=== PATIENT | male | born 1950 | race Caucasian/White ===

== ENCOUNTER 2025-04-30 10:35 | Emergency (ER) | payer MEDICARE, SELFPAY ==
[2025-04-30 10:38] VITALS: BP 134/100
--- NOTE | 2025-04-30 11:42 | ED.GENMED ---
History of Present Illness
General
Chief Complaint: Post Operative Problem(s)
Source: patient
Exam Limitations: none
Time Seen by Provider: 04/30/25 11:41
Nursing documentation reviewed up to this point in time: agreed with
History of Present Illness
History of Present Illness:
75-year-old male with history of A-fib on Eliquis, also skin cancer, had skin cancer removed by Mohs surgery anterior left shoulder/upper chest area on 04/28. Had held his Xarelto for 3 days prior. He resumed it yesterday. He woke this a.m. with
bleeding from the site. He reports waking up this morning with blood on his dressing, although not severe enough to cause a pool of blood. The patient expressed concern that moving his arm and the way he was sleeping might have aggravated the
bleeding. [facility] in [place] but plans to return home to [place] today if bleeding does not worsen.
Past History
Past History
ED Past Medical History: Arrthythmia (Afib on Xarelto) and Cancer (skin cancer)
ED Past Surgical History: Other (Mohs surgery 04/28 left upper chest wall)
Review of Systems
Review of Systems
Allergies reviewed?: Yes
All Other Systems: ROS reviewed and negative except as documented in HPI and ROS
Phy Exam
Physical Exam
Physical Exam:
GENERAL: No acute distress. A&Ox3.
CONSTITUTIONAL: Afebrile.
RESPIRATORY: Regular respirations, nonlabored, lungs clear.
CARDIOVASCULAR: Regular rate and rhythm, no murmurs, no rubs.
MUSCULOSKELETAL: Moves with ease. Well perfused.
SKIN: Warm, dry, pink, trickle of blood oozing from left upper anterior shoulder incision site, sutures intact, the blood is oozing from the end of a wound from a 2 mm opening.
PSYCH: Normal mood and affect. Well kept, interactive and appropriate
NEUROLOGIC: Awake, alert and oriented. No focal neurological deficits
Course
Orders/Labs/Results
Orders:
Orders
04/30/25 10:45
Electrocardiogram (*1) Urgent
Reason for Study: Chest Pain
04/30/25 10:46
EKG- Treatment ONCE
Vital Signs
Initial and Last Documented VS:
Initial Vital Signs
Temp Pulse Resp BP Pulse Ox
97.9 F 120 20 134/100 99
04/30/25 10:38 04/30/25 10:38 04/30/25 10:38 04/30/25 10:38 04/30/25 10:38
Last Documented Vital Signs
Temp Pulse Resp BP Pulse Ox
97.9 F 120 20 134/100 99
04/30/25 10:38 04/30/25 10:38 04/30/25 10:38 04/30/25 10:38 04/30/25 11:44
MDM/Problems Addressed
MDM/Problems Addressed:
75-year-old male with history of A-fib on Eliquis, also skin cancer, had skin cancer removed by Mohs surgery anterior left shoulder/upper chest area on 04/28. Had held his Xarelto for 3 days prior. He resumed it yesterday. He woke this a.m. with
bleeding from the site. He reports waking up this morning with blood on his dressing, although not severe enough to cause a pool of blood. The patient expressed concern that moving his arm and the way he was sleeping might have aggravated the
bleeding. The patient is [facility] in [place] but plans to return home to [place] today if bleeding does not worsen.
Still bleeding after one suture 3-0 Prolene applied.
Second [3-0] Prolene suture applied in 'X' fashion and still bleeding but from between a different space between sutures
Third suture applied with good hemostasis
Wound cleansed with normal saline, antibiotic ointment and large Band-Aid applied.
Patient on Xarelto for A-fib, preventative only, okay to hold for the next 2 days.
*Pulse Oximetry
SaO2: 99
Oxygen Mode of Delivery: Room air
Patient hypoxic: not evaluated
*Critical Care Note
Total Time (30-74mins, 75-104mins- exclusive of procedures): Not Applicable
ED Attending Note
-
Portions of this chart may have been created with voice recognition software.� Occasional wrong word or��sound alike� substitutions may have occurred due to the inherent limitations of voice recognition software.
Discharge Plan
Departure
Patient Disposition: Home (Routine Discharge)
Date of Disposition: 04/30/25
Time of Disposition: 12:55
Patient with high blood pressure during this ER visit?: Yes
Condition: Good
Discharge Problem:
Bleeding from surgical wound
Instructions: Bleeding After Surgery
Referrals:
your Moh's surgery doctor [Other] - Keep scheduled appt
Tong Wilkins MD [Family Provider, Family Practice]
Activity Restrictions/Additional Instructions:
As we discussed, avoid extreme movement of the left arm for the next few days.
Cleanse wound gently daily, apply bandaid
Keep your appointment on 05/13 to have the sutures removed.
You may hold your Xarelto for 2 days
There are #3 [3-0] Prolene sutures
Interventions
Interventions:
*Risk Screen - Suicide Last Done: 04/30/25 10:38
*General Assessment Last Done: 04/30/25 10:38
*Neglect/Abuse Screening Last Done: 04/30/25 10:38
*ED- Fall Risk Assessment Last Done: 04/30/25 12:10
*ED COVID-19 Vaccine History Last Done: 04/30/25 12:10
*ED Influenza Vaccine History Last Done: 04/30/25 12:10
*Nursing Disposition Last Done: 04/30/25 13:07
ED-Skin Assessment Last Done: 04/30/25 12:10
Discharge Date and Time
Discharge Date/Time: 04/30/25 13:07
Print Language: SLOVENIAN
== END 2025-04-30 13:07 | disposition home or self-care (01) ==
LOC: EMR 10:35
PROVIDERS: EMERGENCY PHYSICIAN Emergency Medicine; FAMILY PHYSICIAN Family Medicine
DX: L76.21 Postprocedural hemorrhage of skin and subcutaneous tissue following a dermatologic procedure (principal); R03.0 Elevated blood-pressure reading, without diagnosis of hypertension; I48.91 Unspecified atrial fibrillation; Z79.01 Long term (current) use of anticoagulants; Z85.828 Personal history of other malignant neoplasm of skin
CPT/HCPCS: 99283; 12001; 93005